=== PATIENT | male | born 1965 | race African-American/Black ===

== ENCOUNTER 2018-05-19 13:19 | Inpatient (IN) | payer OTHER ==
[2018-05-19 17:09] VITALS: BMI 23.3
--- NOTE | 2018-05-19 18:33 | HP ---
"COWS - Scale Resting Pulse: 0= [place] 80 or Below Sweatin= Chills/Flushing Restless Observation: 3= Extraneous Movement Pupil Size: 0= Normal to Room Light Bone or Joint Aches: 0= None Runny Nose/ Eye Tearin= Runny Nose/Eyes GI Upset > 30mins: 3= Vomiting/Diarrhea (No diarrhea, just vomiting) Tremor Observation: 2= Slight Tremor Visible Yawning Observation: 0= None Anxiety or Irritability: 2=Irritable/Anxious Goose Flesh Skin: 0=Smooth Skin COWS Score: 13 CIWA Score - CIWA Score Nausea/Vomitin-Int. Nausea w/Dry Heave Muscle Tremors: 4-Moderate,w/Arms Extend Anxiety: 4-Mod. Anxious/Guarded Agitation: 3 Paroxysmal Sweats: 1-Minimal Palms Moist Orientation: 1-Uncertain about Date Tacttile Disturbances: 0-None Auditory Disturbances: 0-None Visual Disturbances: 0-None Headache: 0-None Present CIWA-Ar Total Score: 17 Admission ROS S - HPI Chief Complaint: Heroin withdrawal. Allergies/Adverse Reactions: Allergies Allergy/AdvReac Type Severity Reaction Status Date / Time No Known Allergies Allergy Verified 05/19/18 17:55 History of Present Illness: Heroin use disorder since age 14. Cocaine use disorder since age 14. Xanax use disorder since age 19. Alcohol use disorder since age 25. Nicotine at 14. Denies hx blackouts or seizures. Tried burenorphine 1 yr ago and didn't work. Denies MMTP's. Longest hx sobriety 1 week unrelated to bupe. Denies significant PMH/PSH. Search Terms: Rajeev Munoz, 1965 Search Date: 05/19/2018 06:28:59 PM The Drug Utilization Report below displays all of the controlled substance prescriptions, if any, that your patient has filled in the last twelve months. The information displayed on this report is compiled from pharmacy submissions to the Department, and accurately reflects the information as submitted by the pharmacies. This report was requested by: Zoe Blanco | Reference #: [id number] Patient Name: Rajeev Munoz Date: 1965 Address: [address] [place] [address] Sex: Male Rx Written Rx Dispensed Drug Quantity Days Supply Prescriber Name 05/21/2017 05/21/2017 buprenorphine-naloxone 8-2 mg sl tablet 8 4 Jason Donahue MD Exam Limitations: No Limitations - Ebola screening Have you traveled outside of the country in the last 21 days: No (N) Have you had contact with anyone from an Ebola affected area: No Have you been sick,other than usual withdrawal symptoms: No Do you have a fever: No - Review of Systems Constitutional: Chills, Diaphoresis EENT: reports: Nose Congestion Respiratory: reports: No Symptoms reported Cardiac: reports: No Symptoms Reported GI: reports: Vomiting (r/t withdrawal) : reports: No Symptoms Reported Musculoskeletal: reports: No Symptoms Reported Integumentary: reports: No Symptoms Reported Neuro: reports: Tremors Endocrine: reports: No Symptoms Reported Hematology: reports: No Symptoms Reported Psychiatric: reports: Judgement Intact, Mood/Affect Appropiate, Agitated, Anxious (Denies thoughts of harming self or others.), other (Oriented x 2.) Other Systems: Reviewed and Negative Patient History - Patient Medical History Hx Anemia: Yes Hx Asthma: No Hx Chronic Obstructive Pulmonary Disease (COPD): No Hx Cardiac Disorders: No Hx Congestive Heart Failure: No Hx Hypertension: No Hx Hypercholesterolemia: No Hx Pacemaker: No HX Cerebrovascular Accident: No Hx Seizures: No Hx Dementia: No Hx Diabetes: No Hx Gastrointestinal Disorders: No Hx Liver Disease: No Hx Genitourinary Disorders: No Hx Sexually Transmitted Disorders: No Hx Renal Disease (ESRD): No Hx Thyroid Disease: No Hx Human Immunodeficiency Virus (HIV): No (2018 - negative) Hx Hepatitis C: No Hx Depression: No Hx Suicide Attempt: No Hx Schizophrenia: No - Patient Surgical History Past Surgical History: No Hx Neurologic Surgery: No Hx Cataract Extraction: No Hx Cardiac Surgery: No Hx Lung Surgery: No Hx Breast Surgery: No Hx Breast Biopsy: No Hx Abdominal Surgery: No Hx Appendectomy: No Hx Cholecystectomy: No Hx Genitourinary Surgery: No Hx Section: No Hx Orthopedic Surgery: No Anesthesia Reaction: No - PPD History Previous Implant?: Yes Documented Results: Negative w/o proof Implanted On Prior [facility] Admission?: No PPD to be Administered?: Yes - Smoking Cessation Smoking history: Current every day smoker Have you smoked in the past 12 months: Yes Aproximately how many cigarettes per day: 20 Hx Chewing Tobacco Use: No Initiated information on smoking cessation: Yes 'Breaking Loose' booklet given: 05/19/18 - Substance & Tx. History Hx Alcohol Use: Yes Hx Substance Use: Yes Substance Use Type: Alcohol, Cocaine, Heroin, Tranquilizers (Xanax, valium) Hx Substance Use Treatment: Yes (detox, buprenorphine) - Substances Abused Alprazolam (Xanax) Route: Oral Frequency: Daily Amount used: 2 mg Age of first use: 19 Date of Last Use: 05/19/18 Heroin Route: Inhalation Frequency: Daily Amount used: 8 bags Age of first use: 14 Date of Last Use: 05/19/18 Cocaine Route: Smoking Frequency: Daily Amount used: 3 bags Age of first use: 14 Date of Last Use: 05/19/18 Alcohol Route: Oral Frequency: Daily Amount used: 1/2 pint Age of first use: 25 Date of Last Use: 05/17/18 Admission Physical Exam S - Vital Signs Vital Signs: Vital Signs - 24 hr 05/19/18 17:07 Temperature 96.5 F L Pulse Rate 75 Respiratory 20 Rate Blood Pressure 135/90 - Physical General Appearance: Yes: Mild Distress, Tremorous, Irritable, Anxious HEENTM: Yes: EOMI, Hearing grossly Normal, Normal Voice, CANDY, Other (papular lesion (L) lower eye lid.) Respiratory: Yes: Chest Non-Tender, Lungs Clear, Normal Breath Sounds, No Respiratory Distress Neck: Yes: No masses,lesions,Nodules, Supple Breast: Yes: Breast Exam Deferred Cardiology: Yes: Regular Rhythm, Regular Rate, S1, S2 Abdominal: Yes: Non Tender, Flat, Soft, Increased Bowel Sounds Genitourinary: Yes: Within Normal Limits Back: Yes: Normal Inspection Musculoskeletal: Yes: full range of Motion, Gait Steady Extremities: Yes: Normal Capillary Refill, Normal Range of Motion, Non-Tender, Tremors (of handds at rest. 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, Fully Oriented, Alert, Motor Strength 5/5 Integumentary: Yes: Normal Color, Dry, Warm Lymphatic: Yes: Within Normal Limits - Diagnostic (1) Nicotine dependence, uncomplicated Current Visit: Yes Status: Chronic Qualifiers: Nicotine product type: cigarettes Qualified Code(s): F17.210 - Nicotine dependence, cigarettes, uncomplicated (2) Alcohol dependence with uncomplicated withdrawal Current Visit: Yes Status: Acute (3) Sedative, hypnotic or anxiolytic dependence with withdrawal, uncomplicated Current Visit: Yes Status: Acute (4) Opioid dependence with withdrawal Current Visit: Yes Status: Acute Cleared for Admission [facility] - Detox or Rehab [facility] Level of Care: Medically Managed Detox Regimen/Protocol: Methadone/Valium [facility] Breath Alcohol Content Breath Alcohol Content: 0 Urine Drug Screen - Results Drug Screen Negative: No Urine Drug Screen Results: NORA-Cocaine, OPI-Opiates, BZO-Benzodiazepines, OXY- Oxycodone, FEN-Fentanyl"
[2018-05-19] MEDS ORDERED: diazePAM 5 MG TABLET PO ONE (19:25)
[2018-05-19] MEDS ORDERED: MAGNESIUM HYDROX 2400MG/30ML ORAL SUSPENSION 30 ML CUP PO PRN (19:25)
[2018-05-19] MEDS ORDERED: LOPERAMIDE HCL 2 MG CAPSULE PO PRN (19:25)
[2018-05-19] MEDS ORDERED: METHADONE HCL 10 MG TABLET (FOR DETOX USE ONLY) PO ONE ×2 (19:25→23:00)
[2018-05-19] MEDS ORDERED: MAG HYDROX/AL HYDROX/SIMETH 30 ML UNIT-DOSE CUP PO PRN (19:25)
[2018-05-19] MEDS ORDERED: MENTHOL/PHENOL 1 EACH UD MM PRN (19:25)
[2018-05-19] MEDS ORDERED: IBUPROFEN 400 MG TABLET (FP) PO PRN (19:25)
[2018-05-19] MEDS ORDERED: NICOTINE POLACRILEX 2 MG GUM BUC PRN (19:25)
[2018-05-19] MEDS ORDERED: P-EPHED 60MG/TRIPROLIDI 2.5MG TABLET PO PRN (19:25)
[2018-05-19] MEDS ORDERED: ACETAMINOPHEN 325 MG TABLET (FP) PO PRN (19:25)
[2018-05-19] MEDS ORDERED: MAGNESIUM CITRATE 300 ML BOTTLE PO PRN (19:25)
[2018-05-19] MEDS ORDERED: MELATONIN 5 MG TABLETS PO PRN (22:00)
[2018-05-20] MEDS: diazePAM 5 MG TABLET PO SCH ×4 (00:04→22:21)
[2018-05-20] MEDS: ERYTHROMYCIN 0.5% OPHTHALMIC OINTMENT 3.5 GM TUBE OU SCH ×3 (00:05→22:21)
[2018-05-20] MEDS: THIAMINE HCL 100 MG TABLET (FP) PO SCH ×2 (00:07→22:21)
[2018-05-20 03:51] LABS: URINE APPEARANCE SLCLOUDY; URINE BILIRUBIN NEGATIVE (<2.0 mg/dL); URINE COLOR DKYELLOW; URINE GLUCOSE (UA) NEGATIVE (NEGATIVE); URINE KETONE NEGATIVE (NEGATIVE); URINE LEUK ESTERASE NEGATIVE (NEGATIVE); URINE NITRITE NEGATIVE (NEGATIVE); URINE PROTEIN NEGATIVE (NEGATIVE)
[2018-05-20] MEDS ORDERED: METHADONE HCL 10 MG TABLET (FOR DETOX USE ONLY) PO SCH (10:00)
[2018-05-20] MEDS: PRENATAL VITAMINS W/ FOLIC ACID TABLET (FP) PO SCH (10:07)
[2018-05-20] MEDS: diazePAM 5 MG TABLET PO PRN (10:07)
[2018-05-20] MEDS: NICOTINE 21 MG/24 HOURS TOPICAL PATCH TD SCH (10:08)
--- NOTE | 2018-05-20 10:34 | EKG ---
Test Reason : Blood Pressure : / mmHG Vent. Rate : 056 BPM Atrial Rate : 056 BPM P-R Int : 168 ms QRS Dur : 098 ms QT Int : 426 ms P-R-T Axes : 064 056 045 degrees QTc Int : 411 ms SINUS BRADYCARDIA NONSPECIFIC T WAVE ABNORMALITY NO PREVIOUS ECGS AVAILABLE Confirmed by BRI JONAS MD ([id number]) on 05/20/2018 10:33:44 AM Referred By: Confirmed By:BRI JONAS MD
--- NOTE | 2018-05-20 10:49 | PN ---
S CIWA - CIWA Score Nausea/Vomitin-Mild Nausea/No Vomiting Muscle Tremors: 3 Anxiety: 3 Agitation: 2 Paroxysmal Sweats: 2 Orientation: 0-Oriented Tacttile Disturbances: 0-None Auditory Disturbances: 0-None Visual Disturbances: 1-Very Mild Sensitivity Headache: 1-Very Mild CIWA-Ar Total Score: 13 [facility] COWS - Scale Resting Pulse: 0= [place] 80 or Below Sweatin= Chills/Flushing Restless Observation: 1= Difficult to Sit Still Pupil Size: 1= Pupils >than Normal Bone or Joint Aches: 1= Mild Discomfort Runny Nose/ Eye Tearin= Runny Nose/Eyes GI Upset > 30mins: 1= Stomach Cramp Tremor Observation of Outstretched Hands: 1= Tremor [place], Not Seen Yawning Observation: 2= >3x During Session Anxiety or Irritability: 2=Irritable/Anxious Goose Flesh Skin: 0=Smooth Skin COWS Score: 12 S Progress Note (SOAP) Subjective: runny nose, stomach cramps, interrupted sleep Objective: 05/20/18 10:49 Vital Signs Temperature 97.9 F 05/20/18 10:11 Pulse Rate 68 05/20/18 10:11 Respiratory Rate 16 05/20/18 10:11 Blood Pressure 132/77 05/20/18 10:11 O2 Sat by Pulse Oximetry (%) Laboratory Last Values WBC 4.8 K/mm3 (4.0-10.0) 05/20/18 08:00 RBC 4.78 M/mm3 (4.00-5.60) 05/20/18 08:00 Hgb 12.4 GM/dL (11.7-16.9) 05/20/18 08:00 Hct 37.7 % (35.4-49) 05/20/18 08:00 MCV 78.9 fl (80-96) L 05/20/18 08:00 MCH 25.9 pg (25.7-33.7) 05/20/18 08:00 MCHC 32.8 g/dl (32.0-35.9) 05/20/18 08:00 RDW 13.6 % (11.9-15.9) 05/20/18 08:00 Plt Count 370 K/MM3 (134-434) 05/20/18 08:00 MPV 7.5 fl (7.5-11.1) 05/20/18 08:00 Sodium 142 mmol/L (136-145) 05/20/18 08:00 Potassium 4.1 mmol/L (3.5-5.1) 05/20/18 08:00 Chloride 110 mmol/L (98-107) H 05/20/18 08:00 Carbon Dioxide 26 mmol/L (21-32) 05/20/18 08:00 Anion Gap 5 MMOL/L (8-16) L 05/20/18 08:00 BUN 11 mg/dL (7-18) 05/20/18 08:00 Creatinine 0.7 mg/dL (0.55-1.3) 05/20/18 08:00 Creat Clearance w eGFR > 60 (>60) 05/20/18 08:00 Random Glucose 82 mg/dL (74-106) 05/20/18 08:00 Calcium 8.9 mg/dL (8.5-10.1) 05/20/18 08:00 Total Bilirubin 0.4 mg/dL (0.2-1) 05/20/18 08:00 AST 17 U/L (15-37) 05/20/18 08:00 ALT 20 U/L (13-61) 05/20/18 08:00 Alkaline Phosphatase 83 U/L (45-117) 05/20/18 08:00 Total Protein 6.5 g/dl (6.4-8.2) 05/20/18 08:00 Albumin 2.7 g/dl (3.4-5.0) L 05/20/18 08:00 Urine Color Dkyellow 05/19/18 23:55 Urine Appearance Slcloudy 05/19/18 23:55 Urine pH 5.0 (5.0-8.0) 05/19/18 23:55 Ur Specific [place] 1.029 (1.010-1.035) 05/19/18 23:55 Urine Protein Negative (NEGATIVE) 05/19/18 23:55 Urine Glucose (UA) Negative (NEGATIVE) 05/19/18 23:55 Urine Ketones Negative (NEGATIVE) 05/19/18 23:55 Urine Blood Negative (NEGATIVE) 05/19/18 23:55 Urine Nitrite Negative (NEGATIVE) 05/19/18 23:55 Urine Bilirubin Negative (<2.0 mg/dL) 05/19/18 23:55 Urine Urobilinogen 2.0 mg/dL (0.2-1.0) 05/19/18 23:55 Ur Leukocyte Esterase Negative (NEGATIVE) 05/19/18 23:55 RPR Titer Nonreactive (NONREACTIVE) 05/20/18 08:00 Aox3 anxious no adventitious breath sounds full ROM ambulating in the unit independently withdrawal sx increase fluids continue detox continue to monitor
[2018-05-20 11:06] LABS: ALBUMIN 2.7 g/dl (3.4-5.0); ALK PHOS 83 U/L (45-117); ANION GAP 5 MMOL/L (8-16); BILIRUBIN,TOTAL 0.4 mg/dL (0.2-1); BLOOD UREA NITROGEN 11 mg/dL (7-18); CALCIUM 8.9 mg/dL (8.5-10.1); CHLORIDE 110 mmol/L (98-107); CO2 26 mmol/L (21-32); CREATININE 0.7 mg/dL (0.55-1.3); GLUCOSE,RANDOM 82 mg/dL (74-106); POTASSIUM 4.1 mmol/L (3.5-5.1); SGOT/AST 17 U/L (15-37); SGPT/ALT 20 U/L (13-61); SODIUM 142 mmol/L (136-145); TOT PROT 6.5 g/dl (6.4-8.2)
[2018-05-20 11:13] LABS: HEMATOCRIT 37.7 % (35.4-49); HEMOGLOBIN 12.4 GM/dL (11.7-16.9); MCH 25.9 pg (25.7-33.7); MCHC 32.8 g/dl (32.0-35.9); MEAN CELL VOLUME 78.9 fl (80-96); MEAN PLT VOLUME 7.5 fl (7.5-11.1); PLATELET COUNT 370 K/MM3 (134-434); RBC 4.78 M/mm3 (4.00-5.60); RDW 13.6 % (11.9-15.9); WHITE BLOOD COUNT 4.8 K/mm3 (4.0-10.0)
[2018-05-21] MEDS: diazePAM 5 MG TABLET PO PRN (05:51)
[2018-05-21] MEDS: guaiFENesin/D-METHORPHAN HB 10 ML UNIT-DOSE CUPS PO PRN ×3 (05:51→23:35)
[2018-05-21] MEDS ORDERED: METHADONE HCL 5 MG TABLET (FOR DETOX USE ONLY) PO SCH (10:00)
[2018-05-21] MEDS: NICOTINE 21 MG/24 HOURS TOPICAL PATCH TD SCH (10:06)
[2018-05-21] MEDS: diazePAM 5 MG TABLET PO SCH ×2 (10:06→22:09)
[2018-05-21] MEDS: PRENATAL VITAMINS W/ FOLIC ACID TABLET (FP) PO SCH (10:06)
[2018-05-21] MEDS: ERYTHROMYCIN 0.5% OPHTHALMIC OINTMENT 3.5 GM TUBE OU SCH ×2 (10:08→22:09)
--- NOTE | 2018-05-21 11:36 | PN ---
[facility] CIWA - CIWA Score Nausea/Vomitin-No Nausea/No Vomiting Muscle Tremors: 3 Anxiety: 2 Agitation: 3 Paroxysmal Sweats: 1-Minimal Palms Moist Orientation: 0-Oriented Tacttile Disturbances: 1-Very Mild Itch/Numbness Auditory Disturbances: 0-None Visual Disturbances: 0-None Headache: 1-Very Mild CIWA-Ar Total Score: 11 S COWS - Scale Resting Pulse: 1= [place] 81-100 Sweatin= Chills/Flushing Restless Observation: 1= Difficult to Sit Still Pupil Size: 0= Normal to Room Light Bone or Joint Aches: 2= Severe Diffuse Aches Runny Nose/ Eye Tearin= Runny Nose/Eyes GI Upset > 30mins: 1= Stomach Cramp Tremor Observation of Outstretched Hands: 2= Slight Tremor Visible Yawning Observation: 1= 1-2x During Session Anxiety or Irritability: 1=Feels Anxious/Irritable Goose Flesh Skin: 0=Smooth Skin COWS Score: 12 [facility] Progress Note (SOAP) Subjective: sweat tremor muscle cramp mild gi distress Objective: 05/21/18 11:36 Vital Signs Temperature 97.5 F L 05/21/18 09:44 Pulse Rate 74 05/21/18 09:44 Respiratory Rate 18 05/21/18 09:44 Blood Pressure 131/76 05/21/18 09:44 O2 Sat by Pulse Oximetry (%) Laboratory Last Values WBC 4.8 K/mm3 (4.0-10.0) 05/20/18 08:00 RBC 4.78 M/mm3 (4.00-5.60) 05/20/18 08:00 Hgb 12.4 GM/dL (11.7-16.9) 05/20/18 08:00 Hct 37.7 % (35.4-49) 05/20/18 08:00 MCV 78.9 fl (80-96) L 05/20/18 08:00 MCH 25.9 pg (25.7-33.7) 05/20/18 08:00 MCHC 32.8 g/dl (32.0-35.9) 05/20/18 08:00 RDW 13.6 % (11.9-15.9) 05/20/18 08:00 Plt Count 370 K/MM3 (134-434) 05/20/18 08:00 MPV 7.5 fl (7.5-11.1) 05/20/18 08:00 Sodium 142 mmol/L (136-145) 05/20/18 08:00 Potassium 4.1 mmol/L (3.5-5.1) 05/20/18 08:00 Chloride 110 mmol/L (98-107) H 05/20/18 08:00 Carbon Dioxide 26 mmol/L (21-32) 05/20/18 08:00 Anion Gap 5 MMOL/L (8-16) L 05/20/18 08:00 BUN 11 mg/dL (7-18) 05/20/18 08:00 Creatinine 0.7 mg/dL (0.55-1.3) 05/20/18 08:00 Creat Clearance w eGFR > 60 (>60) 05/20/18 08:00 Random Glucose 82 mg/dL (74-106) 05/20/18 08:00 Calcium 8.9 mg/dL (8.5-10.1) 05/20/18 08:00 Total Bilirubin 0.4 mg/dL (0.2-1) 05/20/18 08:00 AST 17 U/L (15-37) 05/20/18 08:00 ALT 20 U/L (13-61) 05/20/18 08:00 Alkaline Phosphatase 83 U/L (45-117) 05/20/18 08:00 Total Protein 6.5 g/dl (6.4-8.2) 05/20/18 08:00 Albumin 2.7 g/dl (3.4-5.0) L 05/20/18 08:00 Urine Color Dkyellow 05/19/18 23:55 Urine Appearance Slcloudy 05/19/18 23:55 Urine pH 5.0 (5.0-8.0) 05/19/18 23:55 Ur Specific [place] 1.029 (1.010-1.035) 05/19/18 23:55 Urine Protein Negative (NEGATIVE) 05/19/18 23:55 Urine Glucose (UA) Negative (NEGATIVE) 05/19/18 23:55 Urine Ketones Negative (NEGATIVE) 05/19/18 23:55 Urine Blood Negative (NEGATIVE) 05/19/18 23:55 Urine Nitrite Negative (NEGATIVE) 05/19/18 23:55 Urine Bilirubin Negative (<2.0 mg/dL) 05/19/18 23:55 Urine Urobilinogen 2.0 mg/dL (0.2-1.0) 05/19/18 23:55 Ur Leukocyte Esterase Negative (NEGATIVE) 05/19/18 23:55 RPR Titer Nonreactive (NONREACTIVE) 05/20/18 08:00 lab noted Assessment: 05/21/18 11:36 withdrawal sx Plan: continue detox
[2018-05-21] MEDS: THIAMINE HCL 100 MG TABLET (FP) PO SCH (22:09)
[2018-05-22] MEDS: diazePAM 5 MG TABLET PO PRN (05:50)
[2018-05-22] MEDS: guaiFENesin/D-METHORPHAN HB 10 ML UNIT-DOSE CUPS PO PRN (05:51)
[2018-05-22 06:23] VITALS: BP 142/90; PULSE 58; TEMP 96.6
--- NOTE | 2018-05-22 08:44 | DS ---
[facility] Detox Discharge Summary Admission Date: 05/19/18 Discharge Date: 05/22/18 - History Present History: Alcohol Dependence, Opioid Dependence, Sedative Dependence Additional Comments: 52 years old male admitted on 05/19/18 for benzo and opiate withdrawal sx wants to leave the detox unit to court that arranged "a while ago", encourage the patient to rearrange the court date or inform authority that addiction treatment as important as legal issue strong recommend attend [facility] and self help group and meeting - Physical Exam Results Vital Signs: Vital Signs Temperature 96.6 F L 05/22/18 06:00 Pulse Rate 58 L 05/22/18 06:00 Respiratory Rate 18 05/22/18 06:00 Blood Pressure 142/90 05/22/18 06:00 O2 Sat by Pulse Oximetry (%) Pertinent Admission Physical Exam Findings: benzo and opiate withdrawal sx Vital Signs Temperature 96.6 F L 05/22/18 06:00 Pulse Rate 58 L 05/22/18 06:00 Respiratory Rate 18 05/22/18 06:00 Blood Pressure 142/90 05/22/18 06:00 O2 Sat by Pulse Oximetry (%) Laboratory Last Values WBC 4.8 K/mm3 (4.0-10.0) 05/20/18 08:00 RBC 4.78 M/mm3 (4.00-5.60) 05/20/18 08:00 Hgb 12.4 GM/dL (11.7-16.9) 05/20/18 08:00 Hct 37.7 % (35.4-49) 05/20/18 08:00 MCV 78.9 fl (80-96) L 05/20/18 08:00 MCH 25.9 pg (25.7-33.7) 05/20/18 08:00 MCHC 32.8 g/dl (32.0-35.9) 05/20/18 08:00 RDW 13.6 % (11.9-15.9) 05/20/18 08:00 Plt Count 370 K/MM3 (134-434) 05/20/18 08:00 MPV 7.5 fl (7.5-11.1) 05/20/18 08:00 Sodium 142 mmol/L (136-145) 05/20/18 08:00 Potassium 4.1 mmol/L (3.5-5.1) 05/20/18 08:00 Chloride 110 mmol/L (98-107) H 05/20/18 08:00 Carbon Dioxide 26 mmol/L (21-32) 05/20/18 08:00 Anion Gap 5 MMOL/L (8-16) L 05/20/18 08:00 BUN 11 mg/dL (7-18) 05/20/18 08:00 Creatinine 0.7 mg/dL (0.55-1.3) 05/20/18 08:00 Creat Clearance w eGFR > 60 (>60) 05/20/18 08:00 Random Glucose 82 mg/dL (74-106) 05/20/18 08:00 Calcium 8.9 mg/dL (8.5-10.1) 05/20/18 08:00 Total Bilirubin 0.4 mg/dL (0.2-1) 05/20/18 08:00 AST 17 U/L (15-37) 05/20/18 08:00 ALT 20 U/L (13-61) 05/20/18 08:00 Alkaline Phosphatase 83 U/L (45-117) 05/20/18 08:00 Total Protein 6.5 g/dl (6.4-8.2) 05/20/18 08:00 Albumin 2.7 g/dl (3.4-5.0) L 05/20/18 08:00 Urine Color Dkyellow 05/19/18 23:55 Urine Appearance Slcloudy 05/19/18 23:55 Urine pH 5.0 (5.0-8.0) 05/19/18 23:55 Ur Specific [place] 1.029 (1.010-1.035) 05/19/18 23:55 Urine Protein Negative (NEGATIVE) 05/19/18 23:55 Urine Glucose (UA) Negative (NEGATIVE) 05/19/18 23:55 Urine Ketones Negative (NEGATIVE) 05/19/18 23:55 Urine Blood Negative (NEGATIVE) 05/19/18 23:55 Urine Nitrite Negative (NEGATIVE) 05/19/18 23:55 Urine Bilirubin Negative (<2.0 mg/dL) 05/19/18 23:55 Urine Urobilinogen 2.0 mg/dL (0.2-1.0) 05/19/18 23:55 Ur Leukocyte Esterase Negative (NEGATIVE) 05/19/18 23:55 RPR Titer Nonreactive (NONREACTIVE) 05/20/18 08:00 lab noted - Treatment Hospital Course: Detox Protocol Followed, Responded well Patient has Accepted a Rehab Referral to: [facility] - Medication Discharge Medications: Ambulatory Orders NK [No Known Home Medication] 05/19/18 - Diagnosis (1) Alcohol dependence with uncomplicated withdrawal Current Visit: Yes Status: Acute (2) Opioid dependence with withdrawal Current Visit: Yes Status: Acute (3) Sedative, hypnotic or anxiolytic dependence with withdrawal, uncomplicated Current Visit: Yes Status: Acute (4) Nicotine dependence, uncomplicated Current Visit: Yes Status: Acute Qualifiers: Nicotine product type: cigarettes Qualified Code(s): F17.210 - Nicotine dependence, cigarettes, uncomplicated - AMA Did Patient Leave Against Medical Advice: Yes
[2018-05-23] MEDS ORDERED: METHADONE HCL 10 MG TABLET (FOR DETOX USE ONLY) PO SCH (10:00)
[2018-05-23] MEDS ORDERED: diazePAM 5 MG TABLET PO SCH (10:00)
[2018-05-24] MEDS ORDERED: METHADONE HCL 5 MG TABLET (FOR DETOX USE ONLY) PO SCH (06:00)
== END 2018-05-22 09:45 | disposition left against medical advice (07) | DRG 770 ==
LOC: YASAS 13:19 → Y6N 18:00
PROC: HZ2ZZZZ Detoxification Services for Substance Abuse Treatment (ICD-10-PCS; principal; 2018-05-19)
DX: F11.23 Opioid dependence with withdrawal (principal); F10.230 Alcohol dependence with withdrawal, uncomplicated; F13.230 Sedative, hypnotic or anxiolytic dependence with withdrawal, uncomplicated; F14.20 Cocaine dependence, uncomplicated; F17.210 Nicotine dependence, cigarettes, uncomplicated
CPT/HCPCS: 36415; 80053; 81003; 85027; 86593; 93005; 93010